=== PATIENT | female | born 1990 | race Two or more races ===

== ENCOUNTER 2019-09-02 | Emergency (ER) | payer SELFPAY ==
[2019-09-02] VITALS: BP 106/73
[~2019-09-02] VITALS: Ht 157.5 cm; Wt 75.7 kg
[2019-09-02] MEDS ORDERED: HYDROCODONE/APAP 5/325MG 1 EACH TABLET PO ONE (01:30)
[2019-09-02] MEDS ORDERED: HYDROCODONE/APAP 5/325MG 1 EACH TABLET ONE (01:35)
== END 2019-09-02 01:43 | disposition home or self-care (01) ==
LOC: ER 00:03
DX: S62.326A Displaced fracture of shaft of fifth metacarpal bone, right hand, initial encounter for closed fracture (principal); F17.200 Nicotine dependence, unspecified, uncomplicated; Z60.2 Problems related to living alone; W22.8XXA Striking against or struck by other objects, initial encounter; Y93.89 Activity, other specified; Y92.89 Other specified places as the place of occurrence of the external cause; Y99.8 Other external cause status
CPT/HCPCS: 73130-TC

== ENCOUNTER 2020-02-13 13:54 | Emergency (ER) | payer SELFPAY ==
[~2020-02-13] VITALS: Ht 175.3 cm; Wt 90.7 kg
--- NOTE | 2020-02-13 14:00 | NUR ---
PT JENNY FROM THE STRE[facility] C/O OD ON [place]. NARCAN GIVEN CRUSHER DRY GROUND MICA. PT IS AAOX3, NOT IN RESPIRATORY DISTRESS, HOOKED TO [employer], KEPT RESTED AND COMFORTABLE. WILL CONTINUE TO MONITOR.
--- NOTE | 2020-02-13 14:48 | NUR ---
SEEN AND EXAMINED BY .
[2020-02-13] MEDS ORDERED: NALOXONE PREFILLED SYRINGE 2 MG/2 ML SYRINGE ONE (14:51)
[2020-02-13] MEDS ORDERED: NALOXONE PREFILLED SYRINGE 2 MG/2 ML SYRINGE IV ONE (15:00)
--- NOTE | 2020-02-13 15:09 | NUR ---
FRIEND [phone]
--- NOTE | 2020-02-13 15:15 | NUR ---
PT'S MOM CALLED [facility] FOR INFO [phone]
--- NOTE | 2020-02-13 19:14 | NUR ---
Spoke to pt. Pt denies pain. VSS. Placed on monitor and pulse ox. Pt aware mother will pick her up once she is discharged.
--- NOTE | 2020-02-13 19:17 | NUR ---
CALLED MOTHER TO BACKSIDE GRINDER PATIENT. STATED BOYFRIEND IS ON THE WAY. ETA 15 MINS.
--- NOTE | 2020-02-13 19:45 | NUR ---
Patient discharged to home in stable condition. Written and verbal after care instructions given. Patient verbalizes understanding of instruction and RX. Pt picked up by Boyfriend. Ambulated through the E.D. before discharged. VSS.
--- NOTE | 2020-02-13 19:45 | NUR ---
IV removed. Catheter intact and site benign. Pressure and 4x4 applied to site. No bleeding noted.
[2020-02-13 19:46] VITALS: BP 112/69
== END 2020-02-13 19:46 | disposition home or self-care (01) ==
LOC: EDBD 13:56 → ER 13:56
DX: T40.2X1A Poisoning by other opioids, accidental (unintentional), initial encounter (principal); E66.01 Morbid (severe) obesity due to excess calories; Z68.29 Body mass index [BMI] 29.0-29.9, adult; Y92.89 Other specified places as the place of occurrence of the external cause
CPT/HCPCS: 96374; 99285; J2310